=== PATIENT | female | born 1950 | race Caucasian/White ===

== ENCOUNTER 2016-12-29 17:16 | Emergency (ER) | payer BC ==
[2016-12-29 17:50] LABS: BASOPHIL# 0.1 X 10^3uL (0.0-0.1); BASOPHILS 0.9 % (0.0-2.0); EOSINOPHILS 6.2 % (0.0-6.0); EOSINOPHILS# 0.5 X 10^3uL (0.0-0.4); HEMATOCRIT 30.3 % (36.0-48.0); HEMOGLOBIN 9.8 g/dL (12.0-16.0); LYMPHOCYTES 20.2 % (20.0-40.0); LYMPHOCYTES# 1.6 X 10^3uL (0.8-3.8); MEAN CORPUS. HGB CONCENTRATION 32.3 g/dL (32.0-36.0); MEAN CORPUSCULAR HEMOGLOBIN 28.5 pg (29.0-35.0); MEAN PLATELET VOLUME 6.8 fL (7.4-10.4); MONOCYTES# 0.6 X 10^3uL (0.2-1.0); NEUTROPHILS 64.7 % (54.0-75.0); NEUTROPHILS# 5.2 X 10^3uL (2.6-6.7); RED BLOOD COUNT 3.45 X 10^6uL (4.20-6.10); RED CELL DISTRIBUTION WIDTH 12.2 % (11.5-14.5)
[2016-12-29 18:01] LABS: CALCIUM 8.6 mg/dL (8.4-10.2); MAGNESIUM 2.1 mg/dL (1.6-2.3); POTASSIUM 3.6 mmol/L (3.5-5.1)
[2016-12-29 18:16] LABS: TROPONIN I 0.034 ng/mL (0.00-0.034)
[2016-12-29] MEDS ORDERED: LEVETIRACETAM 500 MG TABLET PO ONE (20:28)
[2016-12-29] MEDS ORDERED: FENTANYL 250 MCG/5 ML VIAL ONE (20:30)
--- NOTE | 2016-12-29 21:42 | ER PHYSICIAN DOCUMENTATION ---
Physician Documentation [facility] Name:Marilynn Black Age:66 yrs Sex:Female :1950 Arrival Date:12/29/2016 Time:17:16 BedTrauma B Private MD: Dm Guthrie Disposition: 12/29/16 20:14 Transfer ordered to [facility]. Diagnosis is Dyspnea. - Reason for transfer: Specialty. - Accepting physician is Dr. Norwood. - Condition is Fair. - Problem is an ongoing problem. - Symptoms are unchanged. COBRA Form completed? Yes Transfer - Mode of Transportation Ambulance HPI: 12/29 19:35 This 66 yrs old Female presents to ER via Private Vehicle with complaints of jm Breathing Difficulty, Chest Pressure. 19:35 The patient has shortness of breath at rest. Onset: The symptom(s)/episode jm began/occurred yesterday, and became worse. Duration: The symptoms are continuous. The patient's shortness of breath is aggravated by light activity. Associated signs and symptoms: Pertinent positives: chest pain. Severity of symptoms: in the emergency department the symptoms are unchanged. Risk Factors Risk factors for coronary artery disease include: A history of known coronary artery disease. The patient has experienced similar episodes in the past, chronically. The patient has not recently seen a physician. 66 yo F w hx of diastolic HF here for dyspnea and CHF. Pt also has a chronic LBBB, atrial fib, and a MV replacement. Pt has been coughing up pink sputum and has had chest pressure all day. . Historical: - Allergies: Clindamycin; SULFA (SULFONAMIDES); Narcan; Adhesives; Latex; - PMHx: Diastolic heart failure; HYPERTENSION; PNEUMONIA; TIA; CAD; ATRIAL FIB; MITRAL VALVE DISORDER; SLEEP APNEA; COPD; CHF; - PSHx: TRICUSPID REPLACEMENT; MITRAL VALVE REPLACEMENT; MITRAL VALVE REPAIR; - Tetanus: < 10 years. - Ebola Screening: : Patient denies exposure to infectious person. Patient denies travel to an Ebola-affected area in the 21 days before illness onset. . - Social history: Smoking status: Patient states former smoker of tobacco. Patient/guardian denies using alcohol, marijuana. ROS: 19:39 Constitutional: Positive for fatigue, malaise. jm 19:39 ENT: Negative for sinus congestion, sinus pain, sore throat. 19:39 Neck: Negative for stiffness, swelling. 19:39 Cardiovascular: Positive for chest pain. 19:39 Respiratory: Positive for cough, dyspnea on exertion, shortness of breath. 19:39 Abdomen/GI: Negative for nausea, vomiting. 19:39 MS/extremity: Positive for swelling, Negative for rash. 19:39 Skin: Positive for swelling. 19:39 Neuro: Negative for headache, weakness. 19:39 Psych: Negative for drug dependence, alcohol dependence. 19:39 All other systems are negative. Exam: 19:44 Constitutional: The patient appears alert, awake, obese. 19:44 Eyes: Periorbital structures: appear normal, Extraocular movements: intact throughout. 19:44 ENT: Mouth: is normal, Voice: is normal. 19:44 Cardiovascular: Rate: normal, Rhythm: regular, Pulses: no pulse deficits are appreciated, Edema: 1+ edema to level of left ankle and right ankle. 19:44 Respiratory: the patient does not display signs of respiratory distress, Respirations: normal, Breath sounds: rales, that are mild, are located in both bases, wheezing, that is mild, is heard in the left posterior lower lobe and right posterior lower lobe. 19:44 Abdomen/GI: Bowel sounds: normal, Palpation: abdomen is soft and non-tender. 19:44 Back: normal spinal alignment noted, CVA tenderness, is absent. 19:44 Skin: Appearance: Color: pink, no rash present. 19:44 Neuro: Mentation: is normal, Memory: is normal. 19:44 Psych: Behavior/mood is pleasant, cooperative, Affect is calm. Vital Signs: 17:20 BP 108 / 65; Pulse 77; Resp 24; Temp 98.0; Pulse Ox 86% on 3 lpm NC; Pain 0/10; st 17:22 Pulse Ox 96% on 5 lpm NC; st 20:00 BP 100 / 62; Pulse 69; Resp 22; Pulse Ox 95% on 5 lpm NC; lb MDM: 17:19 Patient medically screened. john 19:47 Differential diagnosis: Anxiety Reaction CHF exacerbation, Myocardial Infarction jm pneumonia, pulmonary edema. Data reviewed: vital signs, nurses notes, old medical records, lab test result(s), EKG, radiologic studies, and as a result, I will initiate a consult, from a Dr. Foster. Test interpretation: by ED physician or midlevel provider: plain radiologic studies, ECG. Counseling: I had a detailed discussion with the patient and/or guardian regarding: the historical points, exam findings, and any diagnostic results supporting the discharge/admit diagnosis, lab results, radiology results, the need to transfer to another facility. ECG:. Physician consultation: Mariela Foster DO regarding need to come to ED to see patient, and will see patient immediately, after a discussion of the case, a recommendation for transfer for higher level of care is made. ED course: Pt is closely followed by cards and w the trop being mildly elevated and w/o cards coverage, Dr. Foster did not feel comfortable admitting her, which is understandable. Pt transferred down to [facility]. . 12/29 17:55 Order name: CBC AUTO DIF, MDIF/RMOR IF IND; Complete Time: 19:19 EDKS 12/29 18:07 Order name: BASIC METABOLIC PANEL; Complete Time: 19:19 EDKS 12/29 18:07 Order name: MAGNESIUM; Complete Time: 19:19 EDKS 12/29 18:11 Order name: BNP,NT-PRO; Complete Time: 19:19 EDKS 12/29 18:17 Order name: TROPONIN I; Complete Time: 19:19 EDKS 12/29 17:44 Order name: 12-lead EKG; Complete Time: 18:10 12/29 17:44 Order name: Iv Saline Lock; Complete Time: 18:10 12/29 17:44 Order name: Place Patient On Monitor; Complete Time: 18:10 12/29 17:44 Order name: Pulse Ox Continuous; Complete Time: 18:10 12/29 17:44 Order name: Oxygen; Complete Time: 18:10 EC:47 Rhythm is irregular with Left bundle branch block. QT interval is normal. No Q waves. T jm waves are Normal. No ST changes noted. No change from previous ECG. Dispensed Medications: 20:24 Drug: Keppra 250 mg; Route: PO; lb 20:24 Follow up: Response: No adverse reaction lb Signatures: Kathleen Rowe, Dm Garcia RN, MD MD jm Bollock, Lynda lb
--- NOTE | 2016-12-29 21:42 | ER NURSING DOCUMENTATION ---
Nurse's Notes [facility] Name:Marilynn Black Age:66 yrs Sex:Female :1950 Arrival Date:12/29/2016 Time:17:16 BedTrauma B Private MD: Diagnosis:Dyspnea Presentation: 12/29 17:19 Acuity: CHINTAN 2 st 17:20 Presenting complaint: Presenting complaint: Patient states: pt states she has had a st cough for a week. coughing up pink today. pt has had increased SOB and a weight gain of 3 lb in the last 2 days. 18:28 Transition of care: Home. st 18:28 Method Of Arrival: Private Vehicle st Triage Assessment: 17:20 General: Appears uncomfortable, Behavior is cooperative. General: pt is normally on [address] O2 and has bumped it up to 3 and still feels SOB. Pain: Denies pain. Cardiovascular: Heart tones present clicking sound from heart valve.. Edema is 2+ to left ankle, left foot, right ankle and right foot Reports shortness of breath Rhythm is bundle branch block hx of the same. Respiratory: Airway is patent Respiratory effort is even, labored, Respiratory pattern is regular, symmetrical, Breath sounds are diminished bilaterally. Breath sounds with wheezes bilaterally. tight bilateraly Reports shortness of breath at rest on exertion cough that is bring up pink sputum Onset: The symptoms/episode began/occurred gradually, the patient has moderate shortness of breath. Historical: - Allergies: Clindamycin; SULFA (SULFONAMIDES); Narcan; Adhesives; Latex; - PMHx: Diastolic heart failure; HYPERTENSION; PNEUMONIA; TIA; CAD; ATRIAL FIB; MITRAL VALVE DISORDER; SLEEP APNEA; COPD; CHF; - PSHx: TRICUSPID REPLACEMENT; MITRAL VALVE REPLACEMENT; MITRAL VALVE REPAIR; - Tetanus: < 10 years. - Ebola Screening: : Patient denies exposure to infectious person. Patient denies travel to an Ebola-affected area in the 21 days before illness onset. . - Social history: Smoking status: Patient states former smoker of tobacco. Patient/guardian denies using alcohol, marijuana. Screenin:39 Infectious Disease Risk None. Abuse screen: Denies threats or abuse. Denies injuries st from another. pt feels safe at home. Nutritional screening: No deficits noted. Assessment: 18:27 General: pt resting quietly. st 20:00 Reassessment: care of pt endorsed. resting in high fowlers. resp easy at rest. lungs lb diminished, noted with small exp wheeze lleft lower lobe. given sips of water.. Vital Signs: 17:20 BP 108 / 65; Pulse 77; Resp 24; Temp 98.0; Pulse Ox 86% on 3 lpm NC; Pain 0/10; st 17:22 Pulse Ox 96% on 5 lpm NC; st 20:00 BP 100 / 62; Pulse 69; Resp 22; Pulse Ox 95% on 5 lpm NC; lb ED Course: 17:18 Patient arrived in ED. ama 17:19 Dm Sanchez MD is Attending Physician. john 17:19 Kathleen Rowe RN is Primary Nurse. st 17:[address] 17:20 Oxygen Oxygen administration via nasal cannula @ 5L/min. st 17:27 EKG done per protocol. st 17:43 Inserted peripheral IV: 20 gauge in right antecubital area and blood collected. st 18:17 Port Xray Completed. pm1 18:39 Valuables Remains with patient Patient has correct armband on for positive st identification. Placed in gown. Bed in low position. Call light in reach. police chief on. Pulse ox on. NIBP on. Administered Medications: 20:24 Drug: Keppra 250 mg; Route: PO; lb 20:24 Follow up: Response: No adverse reaction lb Outcome: 20:14 ER care complete, transfer ordered by . john 21:40 Transferred: Patient will be transferred to: [facility]. Facility lb Acceptance Time: December 29, 2016 at 20:00 Patient's face sheet was faxed to accepting facility. Face Sheet included patient's name, address, age, gender, contact information and insurance information. Patient will be transported by: [facility] ground. Report called to: Amy SCHULER Nurse and Physician Charting and Notes were sent to Accepting Facility. All tests and/or procedures with results, if applicable, were sent to accepting facility. 21:40 Condition: improved 21:40 Report given to Amy SCHULER at [facility] 21:40 Discharge Assessment: Patient awake, alert and oriented x 3. No cognitive and/or functional deficits noted. Patient verbalized understanding of disposition instructions. 21:40 Instructed on need for transfer 21:42 Patient left the ED. lb Signatures: Kathleen Rowe, Dm Garcia RN, MD MD jm McBride, Philisha pm1 Ortega Skelton, Reg Reg Emily Julian
--- NOTE | 2016-12-30 08:13 | RADIOLOGY REPORT ---
EXAM:CHEST; SINGLE VIEW [address] INDICATION: Shortness of breath COMPARISON:11/29/2016 and 10/28/2016 TECHNIQUE:An AP portable chest radiograph was obtained. FINDINGS: The heart remains moderately enlarged. Sternal wires are unchanged. Confluent hazy opacitie s in the right upper lobe and right lower lobe are unchanged. Underlying diffuse reticular densities are stable. No new infiltrates have developed. The chest wall is unremarkable. Lower cervical fusion hardware is unchanged. IMPRESSION: 1. Unchanged diffuse reticular densities, which is probably caused by diffuse airways thickening. Thi s may be caused by bronchitis or asthma. 2. Persistent areas of increased density in the right upper and lower lobes. This is unlikely because by pneumonia, its improvement would be expected. Though these could be caused by areas of chronic fi brosis, infiltrating neoplasm is not excluded. Recommend chest CT with contrast for further evaluatio n, unless this has already been performed. Final Electronic Signature: This report was electronically signed by Vinay Santana MD on 12/30/2016 8:11 AM. jose alberto /
== END 2016-12-29 21:42 | disposition short-term general hospital (02) ==
LOC: ER 17:16
DX: R06.00 Dyspnea, unspecified (principal); R07.9 Chest pain, unspecified; R60.0 Localized edema; R06.2 Wheezing; R05 Cough; R06.02 Shortness of breath; R53.83 Other fatigue; R53.81 Other malaise; I50.32 Chronic diastolic (congestive) heart failure; I44.7 Left bundle-branch block, unspecified; I48.2 Chronic atrial fibrillation; I25.10 Atherosclerotic heart disease of native coronary artery without angina pectoris; I10 Essential (primary) hypertension; Z95.2 Presence of prosthetic heart valve; Z79.899 Other long term (current) drug therapy; Z99.81 Dependence on supplemental oxygen; Z74.3 Need for continuous supervision
CPT/HCPCS: 71010; 80048; 83735; 83880; 84484; 85025; 93005; 99285; A0425; A0427